=== PATIENT | male | born 1955 | race Caucasian/White ===

== ENCOUNTER 2016-06-25 16:07 | Emergency (ER) | payer OTHER ==
[~2016-06-25] VITALS: Ht 170.2 cm; Wt 80.3 kg
--- NOTE | 2016-06-25 16:19 | NUR ---
PT IS IN ROOM #1B. DR PERALTA EVALUATED THE PT.
--- NOTE | 2016-06-25 17:48 | NUR ---
PT WAS RE-EVALUATED BY DR PERALTA. PT WAS D/C TO HOME. D/C INSTRUCTIONS GIVEN TO THE PT. NO S/S OF DISTRESS AT THIS TIME. NO SOB. NO N/V. PT DENIES PAIN.
[2016-06-25 17:49] VITALS: BP 136/79
== END 2016-06-25 17:50 | disposition home or self-care (01) ==
LOC: EDBD 16:07 → ER 16:07
DX: T78.3XXA Angioneurotic edema, initial encounter (principal)
CPT/HCPCS: 93005; A4663